=== PATIENT | male | born 1960 | race American Indian/Alaskan Native ===

== ENCOUNTER 2021-08-05 22:20 | Emergency (ER) | payer MEDICAID ==
[2021-08-05] MEDS ORDERED: DEXTROSE 10% *Hypoglycemia IV PRN (22:46)
--- NOTE | 2021-08-05 22:47 | Event Note ---
Date: 08/05/21 EMS documentation not available at time of chart dictation Medical screening examination note: 61-year-old gentleman, brought to the hospital by EMS with a complaint of possible hypoglycemia. As per verbal report from nursing team, glucose 25 in the field, dextrose given, repeat Accu-Chek 70. Patient denies physical pain. The patient states that he called 911 because he felt weak and dizzy. To the best of his knowledge, he does not take any diabetic medications. Place patient on lab support service tech, obtain appropriate laboratory studies, EKG, as needed dextrose, Accu-Cheks as needed, detailed history and physical to be performed by oncoming ER provider.
[2021-08-05 23:13] LABS: Basophils # (Auto) 0.1 K/mm3 (0.0-0.1); Basophils % (Auto) 1.1 % (0.0-1.8); Eosinophils # (Auto) 0.1 K/mm3 (0.0-0.4); Eosinophils % (Auto) 2.1 % (0.0-4.3); Hematocrit 43.8 % (35.5-45.6); Hemoglobin 14.2 gm/dl (11.8-15.2); Lymphocytes # (Auto) 1.6 K/mm3 (1.2-5.4); Lymphocytes % (Auto) 26.1 % (13.4-35.0); Mean Corpuscular HGB Conc 32 % (32-34); Mean Corpuscular Volume 89 fl (84-94); Monocytes # (Auto) 0.4 K/mm3 (0.0-0.8); Monocytes % (Auto) 6.8 % (0.0-7.3); Platelet Count 319 K/mm3 (140-440); Red Blood Count 4.92 M/mm3 (3.65-5.03)
[2021-08-05 23:32] LABS: INR 0.89 (0.87-1.13)
--- NOTE | 2021-08-05 23:35 | Emergency Department Report ---
ED General Adult HPI - General Chief complaint: Hypoglycemia Stated complaint: LOW BLOOD SUGAR Time Seen by Provider: 08/05/21 23:14 Source: EMS Mode of arrival: Stretcher Limitations: Altered Mental Status - History of Present Illness Initial comments: 61-year-old male brought in by EMS with dizziness and presyncope with hypoglycemia with blood sugar of 25 on presentation. Patient was given some sugar by the EMS with improvement to 75 mg/dL. Patient reported that he has been eating much today and yesterday also. He said he has been drinking alcohol with a family member that came from [place]. Patient denies any fever or chills. No fall or loss of consciousness reported. No other modifying or associated factors reported.. - Related Data Allergies Allergy/AdvReac Type Severity Reaction Status Date / Time No Known Allergies Allergy Verified 08/05/21 22:56 ED Review of Systems ROS: Stated complaint: LOW BLOOD SUGAR Other details as noted in HPI Comment: All other systems reviewed and negative Cardiovascular: syncope Endocrine: excessive sweating, other ED Physical Exam - General Limitations: No Limitations General appearance: alert, in no apparent distress - Head Head exam: Present: normal inspection - Eye Eye exam: Present: normal appearance - ENT ENT exam: Present: normal exam, normal orophraynx, mucous membranes moist - Neck Neck exam: Present: normal inspection. Absent: tenderness, meningismus - Respiratory Respiratory exam: Present: normal lung sounds bilaterally. Absent: respiratory distress, accessory muscle use - Cardiovascular Cardiovascular Exam: Present: regular rate, normal rhythm, normal heart sounds - GI/Abdominal GI/Abdominal exam: Present: soft, normal bowel sounds. Absent: distended, tenderness - Extremities Exam Extremities exam: Present: normal inspection, normal capillary refill. Absent: full ROM, tenderness - Back Exam Back exam: Present: normal inspection. Absent: full ROM, tenderness, CVA tenderness (L) - Neurological Exam Neurological exam: Present: alert, oriented X3 ED Course Vital Signs 08/05/21 22:21 O2 Sat by Pulse 100 Oximetry - Reevaluation(s) Reevaluation #1: 08/05/21 23:34 here with hypoglycemia -- with blood sugar of 25 mg /dl with improvement to 75 mg/dl after treatment by the EMS-- will go ahead and give D50 and order routine labs-- Reevaluation #2: 08/06/21 03:20 Blood sugar is improved more than 100 mg/dL at this point patient is stable to be discharged. I do encourage patient not to forget to eat for energy and to prevent recurrence of his hypoglycemia. ED Medical Decision Making - Lab Data Result diagrams: 08/05/21 22:50 08/05/21 22:50 Critical care attestation.: If time is entered above; I have spent that time in minutes in the direct care of this critically ill patient, excluding procedure time. ED Disposition Clinical Impression: Hypocalcemia, Pre-syncope Disposition: 01 HOME / SELF CARE / HOMELESS Is pt being admited?: No Does the pt Need Aspirin: No Condition: Stable Instructions: Near-Syncope, [id number], Hypocalcemia, Adult, Syncope, [id number] Additional Instructions: Increase your daily fluid to help your hydration It is very important that you eat for energy to prevent recurrence of your symptoms Call and schedule follow-up with your primary doctor in the next 3 to 5 days for progress Please do not hesitate to call or return to emergency room if your symptoms worsen Time of Disposition: 03:22
[2021-08-05 23:40] LABS: Alanine Aminotransferase 25 units/L (7-56); Albumin 4.1 g/dL (3.9-5); BUN/Creatinine Ratio 11; Blood Urea Nitrogen 11 mg/dL (9-20); Calcium 8.4 mg/dL (8.4-10.2); Hemolysis Index 6
== END 2021-08-06 05:16 | disposition home or self-care (01) ==
LOC: ED 22:20
DX: E83.51 Hypocalcemia (principal); R55 Syncope and collapse
CPT/HCPCS: 36415; 80053; 82962; 83735; 85025; 85610; 96374; 99284; J3490; 80320; G0480